=== PATIENT | female | born 1955 | race Caucasian/White ===

== ENCOUNTER → 2017-06-19 | Outpatient (CLI) | payer MEDICARE, MEDICAID ==
[2016-06-13 12:25] VITALS: BP 98/60
[~2017-06-19] MED LIST: ATOR40TA59 PO; BUPR200T PO; CA C1TAB38 PO; CHOL200027 PO; CLON1TAB3 PO; DOCU-109 PO; FEXO180T16 PO; GABA600T2 PO; HYDR-971 PO; IBUP-1060 PO; METO-247 PO; MIRT30TA3 PO; NAPR-683 PO; OXYC-323 PO; RISP4TAB2 PO; TOPI200T25 PO
--- NOTE | 2017-06-19 16:17 | CARD ---
APPROVED REPORT EXAM: Two-dimensional and M-mode echocardiogram with Doppler and color Doppler. Other Information Quality : FairHR: 69bpm INDICATION Peripheral Edema Hypoxia. RISK FACTORS Obesity 2D DIMENSIONS RVDd2.6 (2.9-3.5cm)IVSd0.9 (0.7-1.1cm) LVDd4.5 (3.9-5.9cm)PWd0.8 (0.7-1.1cm) LVDs3.3 (2.5-4.0cm)FS (%) 25.2 % SV45.1 mlLVEF(%)50.0 (>50%) Aortic Valve AoV Peak Nic.127.9cm/sAoV VTI29.0cm AO Peak GR.6.5mmHgLVOT Peak Nic.103.3cm/s AO Mean GR.4mmHg Mitral Valve MV E Tchphxoi323.6cm/sMV DECEL OIFD601za MV A Uigymlyh152.2cm/sMV DGM68sr E/A Ratio1.1MVA (PHT)2.76cm2 TDI E/Lateral E'11.2E/Medial E'9.3 Pulmonary Valve PV Peak Ttcmlofz278.9cm/sPV Peak Grad.6mmHg Pulmonary Vein S1 Cgguixsb00.6cm/sD2 Nzedzqlp09.2cm/s LEFT VENTRICLE The left ventricle is normal size. There is normal left ventricular wall thickness. Left ventricle ej ection fractionejection fraction is low normal. The Ejection Fraction is 50%. There is normal LV segm ental wall motion. The left ventricular diastolic function and filling is normal for age. RIGHT VENTRICLE The right ventricle is normal size. The right ventricular systolic function is normal. ATRIA The left atrium size is normal. The right atrium size is normal. The interatrial septum is intact wit h no evidence for an atrial septal defect or patent foramen ovale as noted on 2-D or Doppler imaging. AORTIC VALVE The aortic valve is thickened but opens well. Doppler and Color Flow revealed no significant aortic r egurgitation. There is no significant aortic valvular stenosis. There is no aortic valvular vegetatio n. MITRAL VALVE The mitral valve is thickened but opens well. There is no evidence of mitral valve prolapse. There is no mitral valve stenosis. Doppler and Color Flow revealed no mitral valve regurgitation noted. TRICUSPID VALVE The tricuspid valve leaflets are thickened , but open well. Doppler and Color Flow revealed trace tri cuspid regurgitation. There is no tricuspid valve prolapse or vegetation. There is no tricuspid valve stenosis. PULMONIC VALVE Pulmonic valve was not visualized. Doppler and Color Flow revealed no pulmonic valvular regurgitation . There is no pulmonic valvular stenosis. GREAT VESSELS The aortic root is normal in size. The IVC is normal in size and collapses >50% with inspiration. PERICARDIAL EFFUSION There is no pleural effusion. There is no evidence of significant pericardial effusion. Critical Notification Critical Value: No <Conclusion> Left ventricle ejection fractionejection fraction is low normal. The Ejection Fraction is 50%. The left atrium size is normal. The right atrium size is normal. The mitral valve is thickened but opens well. Doppler and Color Flow revealed trace tricuspid regurgitation. Pulmonic valve was not visualized. There is no evidence of significant pericardial effusion.
== END | disposition home or self-care (01) ==
LOC: ECHO 10:29
PROVIDERS: ATTEND Family Medicine
DX: R09.02 Hypoxemia (principal); R60.0 Localized edema; E66.9 Obesity, unspecified
CPT/HCPCS: 93306

== ENCOUNTER → 2019-01-18 | Outpatient (CLI) | payer MEDICARE, MEDICAID ==
[2018-07-16 10:48] VITALS: BP 100/55
[~2019-01-18] MED LIST changes: +ALBU2.5V5 NEB; +CLON1TAB11 PO; -CLON1TAB3 PO; +FURO-68 PO; +FURO-69 PO; -GABA600T2 PO; +GABA600T7 PO; +HYDR-3164 PO; -HYDR-971 PO; -OXYC-323 PO; +OXYC1TAB15 PO
--- NOTE | 2019-01-19 15:33 | SLEEP ---
DATE OF STUDY: 01/18/2019 SLEEP STUDY: ATTENDING PHYSICIAN: David Boogie M.D. The patient is 63 years old who weighs 143 pounds with a BMI of 28. The patient's [place] score was 9. The patient underwent split night study performed at [facility]. During the night study, the patient spent 407 minutes in bed and slept for 24 minutes with a sleep efficiency of 70%. Sleep latency was 32 minutes with a REM latency of 120 minutes. Overall, sleep architecture showed increased stage 1 sleep, normal stage 2 sleep, normal slow wave and normal REM sleep. During the initial diagnostic portion of the study, the patient slept for 161 minutes. During that time, the patient had 2 obstructive apneas, no central or mixed apneas and 90 hypopneas. The patient's apnea hypopnea index was 34 per hour, supine index 34 per hour and a REM index of 76 per hour. EKG monitoring revealed normal sinus rhythm, average heart rate 60 beats per minute, no sustained arrhythmias were observed. Nocturnal oximetry study revealed a mean oxygen saturation 86% with lowest of 45%. 33% of time oxygen saturation remained between 80% and 89% and 31% of time between 70% and 79%. No PLMS observed. The patient was started on CPAP at a pressure of 5 cm water and titrated up to 18 cm water. At the final pressure, the patient slept for 9 minutes. The patient's AHI was reduced to 0 per hour and oxygen saturations remained above 89%. The patient had supine sleep throughout, but no REM sleep observed. The patient used a small size full face mask. IMPRESSION: 1. Severe sleep apnea-hypopnea syndrome at an AHI of 34 per hour with a REM AHI of 76 per hour. 2. Severe nocturnal hypoxia secondary to obstructive sleep apnea, but resolved with CPAP. 3. No clinically significant PLMS. RECOMMENDATIONS: 1. CPAP at 18 cm water completely eliminated the patient's sleep apnea and should be used on a nightly basis. It should be noted that there was limited sleep observed at the final pressure, no REM sleep seen. I would recommend review of the download data in 4-6 weeks to make sure the AHI remains less than 5 per hour. 2. Avoid [employer] depressants. 3. Caution regarding driving until symptoms of sleep apnea resolve with the use of CPAP. JOSÉ LUIS GORDILLO MD DR: MOOK/tanvi JOB#: [id number] / [id number] DAVID Ramírez MD
== END | disposition home or self-care (01) ==
LOC: SLPLAB 18:45
PROVIDERS: ATTEND Internal Medicine Critical Care Medicine
DX: G47.33 Obstructive sleep apnea (adult) (pediatric) (principal); G47.34 Idiopathic sleep related nonobstructive alveolar hypoventilation; I10 Essential (primary) hypertension; J44.9 Chronic obstructive pulmonary disease, unspecified
CPT/HCPCS: 95810